=== PATIENT | female | born 1945 | race Caucasian/White ===

== ENCOUNTER 2018-07-15 13:48 | Emergency (ER) | payer OTHER, BC ==
[~2018-07-15] VITALS: Ht 157.5 cm; Wt 95.3 kg
[~2018-07-15 13:48] MED LIST: CIPRO500 MG PO; COZAAR50 MG; ETODOLAC600 MG; GABAPENTIN100 M1; GLIPIZIDE10 MG; GLUCOTROL10 MG; GLUMETZA1000 MG; METFORMIN HCL500 MG; PLAVIX75 MG; TRAM1TAB98 PO; ULTRAM50 MG; URETRON DS1 TAB PO
[2018-07-15] MEDS ORDERED: CLONAZEPAM0.5 M1 (14:33)
== END 2018-07-15 22:16 | disposition home or self-care (01) ==
LOC: ER 13:48
DX: K64.8 Other hemorrhoids (principal)

== ENCOUNTER 2018-07-19 09:26 | Outpatient (CLI) | payer OTHER, BC ==
[~2018-07-19 09:26] MED LIST changes: +CLONAZEPAM0.5 M1
== END 2018-07-19 14:44 | disposition home or self-care (01) ==
LOC: TOM 09:26
DX: R10.9 Unspecified abdominal pain (principal)

== ENCOUNTER 2019-03-24 15:30 | Emergency (ER) | payer OTHER ==
[~2019-03-24] VITALS: Ht 162.6 cm; Wt 95.7 kg
== END 2019-03-24 16:33 | disposition home or self-care (01) ==
LOC: ER 15:30
DX: K64.8 Other hemorrhoids (principal); K62.89 Other specified diseases of anus and rectum

== ENCOUNTER 2023-06-08 12:07 | Outpatient (CLI) | payer OTHER | END 2023-06-08 12:55 | disposition home or self-care (01) | LOC: MAMO-SONO 12:07 | DX: Z12.31 Encounter for screening mammogram for malignant neoplasm of breast (principal); N60.09 Solitary cyst of unspecified breast; N60.02 Solitary cyst of left breast ==